=== PATIENT | female | born 1970 | race Caucasian/White ===

== ENCOUNTER 2021-03-12 13:59 | Inpatient (IN) | payer OTHER ==
[~2021-03-12] VITALS: Ht 165.1 cm; Wt 88.1 kg
--- NOTE | 2021-03-12 14:08 | NUR ---
PT IS IN ROOM 32B. DR DAVID EVALUATED THE PT.
[2021-03-12] MEDS ORDERED: SERT50TA14 (14:14)
[2021-03-12] MEDS ORDERED: LEVOTHYROXINE (14:14)
[2021-03-12] MEDS ORDERED: LORA-259 PO (14:14)
[2021-03-12] MEDS ORDERED: IV NORMAL SALINE 1000 ML BAG IV ONE ×3 (14:15→21:30)
[2021-03-12 14:37] LABS: BASOPHILS % (AUTO) 0.5 % (0.0-2.0); EOSINOPHILS % (AUTO) 0.3 % (0.0-7.0); HEMATOCRIT 41.2 % (31.2-41.9); HEMOGLOBIN 13.9 g/dL (10.9-14.3); LYMPHOCYTES # (AUTO) 3.8 K/uL (20.0-40.0); LYMPHOCYTES % (AUTO) 45.6 % (20.5-51.5); MEAN CORPUSCULAR HEMOGLOBIN 28.8 uug (24.7-32.8); MEAN CORPUSCULAR HGB CONC 34 g/dL (32.3-35.6); MEAN CORPUSCULAR VOLUME 85.5 fL (75.5-95.3); MONOCYTES # (AUTO) 0.5 K/uL (2.0-10.0); MONOCYTES % (AUTO) 5.6 % (0.0-11.0); PLATELET COUNT (AUTO) 338 K/uL (179-408); RED BLOOD CELL COUNT(AUTO) 4.82 MIL/uL (3.63-4.92); WHITE BLOOD COUNT (AUTO) 8.3 K/uL (3.8-11.8)
[2021-03-12 14:38] LABS: CARBON DIOXIDE 25 mmol/L (21-32); CHLORIDE 103 mmol/L (98-107); CREATININE 0.6 mg/dL (0.6-1.3); GLUCOSE 86 mg/dL (74-106); UREA NITROGEN, BLOOD 17 mg/dL (7-18)
[2021-03-12 14:44] LABS: ACETAMINOPHEN < 2.0 ug/mL (10-30); ALANINE AMINOTRANSFERASE 52 U/L (14-59); ALKALINE PHOSPHATASE 80 U/L (50-136); ASPARTATE AMINOTRANSFERASE 23 U/L (15-37); BILIRUBIN,DIRECT 0.1 mg/dL (0.0-0.2); BILIRUBIN,TOTAL 0.3 mg/dL (0.2-1.0); TOTAL PROTEIN, SERUM 6.6 g/dL (6.4-8.2)
[2021-03-12 14:50] LABS: ETHANOL 308 MG/DL (0-0)
[2021-03-12] MEDS ORDERED: KETAMINE HCL 500 MG/10 ML INJ IV ONE ×2 (15:15→17:45)
[2021-03-12] MEDS ORDERED: KETAMINE HCL 500 MG/10 ML INJ ONE (15:22)
[2021-03-12] MEDS ORDERED: HALOPERIDOL LACTATE 5 MG/1 ML VIAL ONE (18:08)
[2021-03-12] MEDS ORDERED: HALOPERIDOL LACTATE 5 MG/1 ML VIAL IM ONE (18:15)
--- NOTE | 2021-03-12 19:09 | NUR ---
REPORT GIVEN TO PARISA SYLVESTER.
--- NOTE | 2021-03-12 19:31 | NUR ---
Pt back to ER from CT.
--- NOTE | 2021-03-12 20:15 | NUR ---
Pt out of ER for CT.
[2021-03-12] MEDS ORDERED: SWABABLE VALVE TRANSFER SET EA MC ONE (20:23)
[2021-03-12] MEDS ORDERED: IV NORMAL SALINE 250 ML IV ONE (20:24)
[2021-03-12] MEDS ORDERED: IOHEXOL 350 100 ML INFUS..BTL ONE (20:24)
--- NOTE | 2021-03-12 20:52 | NUR ---
Pt back to ER from CT.
[2021-03-12] MEDS ORDERED: PIPERACILLIN SODIUM/TAZOBACTAM 3.375 G in IV DEXTROSE 5% 50 ML IV ONE (21:30)
[2021-03-12] MEDS ORDERED: PIPERACILLIN/TAZOBACTAM/D5W 50 ML IV ONE (21:42)
--- NOTE | 2021-03-13 00:24 | NUR ---
Called [facility] to page Dr. Santos.
--- NOTE | 2021-03-13 00:53 | NUR ---
Called [facility] to repage Dr. Santos.
[2021-03-13] MEDS ORDERED: Z GUARD REMEDY PASTE 57 GM TUBE TOP PRN (01:30)
[2021-03-13] MEDS ORDERED: LORAZEPAM 2 MG/1 ML VIAL IV PRN (01:30)
[2021-03-13] MEDS ORDERED: MVI-12 10 ML IV ONE (01:30)
[2021-03-13] MEDS ORDERED: CYANOCOBALAMIN 1,000 MCG TABLET PO ONE (01:30)
[2021-03-13] MEDS ORDERED: ACETAMINOPHEN 325 MG TABLET PO PRN (01:30)
[2021-03-13] MEDS ORDERED: THIAMINE HCL INJ 100 MG in IV DEXTROSE 5% 50 ML IV SCH (01:30)
[2021-03-13] MEDS ORDERED: MAGNESIUM HYDROXIDE 30 ML LIQUID UDC PO PRN (01:30)
[2021-03-13] MEDS ORDERED: FOLIC ACID 1 MG in IV DEXTROSE 5% 50 ML IV SCH (01:30)
[2021-03-13] MEDS ORDERED: ONDANSETRON 4 MG/2 ML VIAL IV PRN (01:30)
--- NOTE | 2021-03-13 01:30 | NUR ---
Dr. Simental on panel call with Dr. Santos. Patient accepted for admission to [facility], diagnosis: sepsis.
--- NOTE | 2021-03-13 01:38 | NUR ---
Report given to Peri MCCAULEY Tele.
--- NOTE | 2021-03-13 02:00 | NUR ---
Admitted a 50 y/o female to Telemetry with an admitting diagnosis of ETOH intoxication and suicidal ideation. Pt is ambulatory, transferred to bed on her own. Pt is A&Ox4, verbally responsive, able to make needs known. Head to toe assessment done. Pt denies any pain or discomfort. No signs of respiratory distress. Belongings checked and placed at bedside. Admission care rendered. Safety measures initiated, call light within reach.
[2021-03-13 02:15] VITALS: BP 143/68
[2021-03-13 02:22] LABS: *BILIRUBIN,URIN NEGATIVE (NEGATIVE); *BLOOD, URINE 1+ (NEGATIVE); *CLARITY,URINE CLEAR (CLEAR); *COLOR,URINE YELLOW (YELLOW); *KETONES,URINE NEGATIVE (NEGATIVE); *UROBILINOGEN,URINE 0.2 E.U./dl (NORMAL); LEUKOCYTE ESTERASE ,URINE NEGATIVE (NEGATIVE); NITRITE, URINE NEGATIVE (NEGATIVE); PH,URINE 5.5 (5.0-8.0); UGLUCOSE NEGATIVE (NEGATIVE)
[2021-03-13 02:38] LABS: BACTERIA,URINE NONE SEEN /HPF (NONE SEEN); SQUAMOUS EPITHELIAL CELL,UR FEW /HPF (NONE SEEN); WBC,URINE 0-3 /HPF (0-3)
[2021-03-13 02:48] LABS: *AMPHETAMINE, URINE NEGATIVE (NEGATIVE); *CANNABINOID, URINE NEGATIVE (NEGATIVE); *COCCAINE, URINE NEGATIVE (NEGATIVE); *OPIATE, URINE NEGATIVE (NEGATIVE); *PHENCYCLIDINE SCREEN,URINE NEGATIVE (NEGATIVE)
[2021-03-13] MEDS ORDERED: THIAMINE HCL 200 MG/2 ML VIAL ONE (02:49)
[2021-03-13] MEDS ORDERED: FOLIC ACID 5 MG/ML VIAL IV ONE (02:50)
[2021-03-13 04:00] VITALS: BP 124/67
[2021-03-13] MEDS: IV NS 1000 ML 1,000 ML IV SCH ×2 (04:53→09:39)
--- NOTE | 2021-03-13 06:28 | NUR ---
Pt slept through the night, no acute distress noted. Tolerated medications well. IVF infusing well on R hand at 125cc/hr. Safety precautions maintained at all times. All needs attended to and met.
[2021-03-13 07:05] LABS: BASOPHILS % (AUTO) 0.2 % (0.0-2.0); EOSINOPHILS # (AUTO) 0.1 K/uL (0.0-0.7); EOSINOPHILS % (AUTO) 0.7 % (0.0-7.0); HEMATOCRIT 36.3 % (31.2-41.9); HEMOGLOBIN 12.1 g/dL (10.9-14.3); LYMPHOCYTES # (AUTO) 2.6 K/uL (20.0-40.0); LYMPHOCYTES % (AUTO) 30.4 % (20.5-51.5); MEAN CORPUSCULAR HEMOGLOBIN 28.9 uug (24.7-32.8); MEAN CORPUSCULAR HGB CONC 33 g/dL (32.3-35.6); MEAN CORPUSCULAR VOLUME 86.3 fL (75.5-95.3); MONOCYTES # (AUTO) 0.5 K/uL (2.0-10.0); MONOCYTES % (AUTO) 5.5 % (0.0-11.0); NEUTROPHILS # (AUTO) 5.4 K/uL (1.8-8.9); NEUTROPHILS % (AUTO) 63.2 % (38.5-71.5); PLATELET COUNT (AUTO) 274 K/uL (179-408); RED BLOOD CELL COUNT(AUTO) 4.21 MIL/uL (3.63-4.92); WHITE BLOOD COUNT (AUTO) 8.6 K/uL (3.8-11.8)
--- NOTE | 2021-03-13 08:00 | NUR ---
Sales And Service Engineer had conversation with patient. Patient denies SI. Patient stated she only said she wanted to end her life because she was drunk. Patient states she has no plans and does not have SI. Will continue to monitor.
[2021-03-13 08:05] LABS: CREATININE 0.6 mg/dL (0.6-1.3); MAGNESIUM 1.7 mg/dL (1.8-2.4); PHOSPHOROUS 3.4 mg/dL (2.5-4.9); POTASSIUM 4.5 mmol/L (3.5-5.1)
--- NOTE | 2021-03-13 11:15 | NUR ---
Patient left AMA. Patient AOx4. On room air. No signs of acute distress. Machine Shop Apprentice explained to patient risks of leaving AMA, patient verbalized understanding. IV access removed. ID armband removed. Belongings accounted for and belongings list signed. AMA form signed by patient. Patient walked to hospital lobby.
[2021-03-13 11:24] VITALS: BP 125/52
[2021-03-13] MEDS ORDERED: MAGNESIUM SULFATE/D5W 100 ML IV SCH (11:45)
[2021-03-13] MEDS ORDERED: THIAMINE HCL 100 MG TABLET PO SCH (13:00)
[2021-03-13] MEDS ORDERED: FOLIC ACID 1 MG TABLET PO SCH (13:00)
[2021-03-14] MEDS ORDERED: THIAMINE HCL INJ 100 MG in IV DEXTROSE 5% 50 ML IV SCH (05:30)
[2021-03-14] MEDS ORDERED: FOLIC ACID 1 MG in IV DEXTROSE 5% 50 ML IV SCH (06:00)
[2021-03-14] MEDS ORDERED: MULTIVIT, IRON, MIN NO. 8, FA TABLET PO SCH (09:00)
== END 2021-03-13 11:00 | disposition left against medical advice (07) | DRG 720 ==
LOC: ER 13:59 → TELE3 03-13 01:42
PROVIDERS: ADMIT Nurse Practitioner Acute Care; ATTEND Nurse Practitioner Acute Care
DX: A41.9 Sepsis, unspecified organism (principal); G92 Toxic encephalopathy; E86.0 Dehydration; F10.129 Alcohol abuse with intoxication, unspecified; Y90.8 Blood alcohol level of 240 mg/100 ml or more; Z20.822 Contact with and (suspected) exposure to COVID-19; W19.XXXA Unspecified fall, initial encounter; Y93.9 Activity, unspecified; Y92.89 Other specified places as the place of occurrence of the external cause; E03.9 Hypothyroidism, unspecified; R45.851 Suicidal ideations
CPT/HCPCS: 36415; 70030-TC; 70450; 70486; 71045; 71275; 72125; 83605; 83735; 84100; 85025; 87040; 93005; A4663; C1758; G0378; G0480; J1630; J2543; J3411; J3490; J7030; J7040; J7050; J7060; Q9967

== ENCOUNTER 2021-04-02 14:46 | Emergency (ER) | payer OTHER ==
[~2021-04-02] VITALS: Ht 165.1 cm; Wt 88.5 kg
[~2021-04-02 14:46] MED LIST: LEVOTHYROXINE; LORA-259 PO; SERT50TA14
--- NOTE | 2021-04-02 17:07 | NUR ---
PT WAS EVALUATED BY DR LOPEZ. PT WAS D/C'd TO HOME. D/C INSTRUCTIONS GIVEN TO THE PT BY DR LOPEZ.
[2021-04-02] MEDS ORDERED: HYDR-3972 PO (17:10)
[2021-04-02 17:15] VITALS: BP 131/69
[2021-04-02] MEDS ORDERED: HYDR-3980 PO (18:41)
== END 2021-04-02 17:16 | disposition home or self-care (01) ==
LOC: ER 14:47
DX: G89.29 Other chronic pain (principal); E03.9 Hypothyroidism, unspecified; Z79.890 Hormone replacement therapy; F41.9 Anxiety disorder, unspecified; F32.9 Major depressive disorder, single episode, unspecified; Z79.899 Other long term (current) drug therapy
CPT/HCPCS: A4663